=== PATIENT | female | born 1985 | race Caucasian/White ===

== ENCOUNTER 2017-06-22 14:10 | Outpatient (CLI) | payer BC ==
[2017-06-22] MEDS ORDERED: Gadobenate Dimeglumine 529 MG/1 ML (20ML VIAL) ONE (14:33)
--- NOTE | 2017-06-22 17:12 | MRI ---
MRI OF BRAIN WITH AND WITHOUT CONTRAST MRI INTERNAL AUDITORY CANALS WITH AND WITHOUT CONTRAST 06/22/17 CLINICAL HISTORY: Vestibular neuritis. FINDINGS: There is no ventriculomegaly, mass effect or midline shift or acute territorial infarction. There is no mass or pathologic enhancement of either CP angle cistern, or along the course of the 7th/8th cran ial nerves. IMPRESSION: There is no acute intracranial abnormality. No evidence of mass or pathologic enhancement of either CP angle cistern. POS: LALI
== END 2017-06-22 14:11 | disposition home or self-care (01) ==
LOC: MRI 14:10
PROVIDERS: ATTEND Otolaryngology Plastic Surgery within the Head & Neck
DX: H81.20 Vestibular neuronitis, unspecified ear (principal)
CPT/HCPCS: 70553; A9579

== ENCOUNTER 2017-12-17 12:46 | Outpatient (CLI) | payer BC ==
--- NOTE | 2017-12-17 14:46 | RAD ---
CERVICAL SPINE 4 VIEWS: Lateral views obtained with neutral, flexion, and extension positions. AP view was also obtained. INDICATION: Neck pain. Migraines. FINDINGS: The cervical vertebrae maintain normal height and alignment. Disk spaces are normally preserved. Po sterior elements are normally aligned. No abnormal listhesis seen with flexion or extension. IMPRESSION: Unremarkable cervical spine. POS: TPC
== END 2017-12-17 12:47 | disposition home or self-care (01) ==
LOC: SCSRAD 12:46
PROVIDERS: ATTEND Chiropractor
DX: M54.2 Cervicalgia (principal)
CPT/HCPCS: 72052

== ENCOUNTER 2018-06-12 15:00 | Outpatient (CLI) | payer BC ==
--- NOTE | 2018-06-12 17:20 | ULT ---
ULTRASOUND OBSTETRICAL COMPLETE: DATE: 06/12/18 HISTORY: 32-year-old female in second trimester of . Supervision of normal . Evaluate anatomy. FINDINGS: number: Fernandes. lie: Variable. Maternal cervix: 5.5 cm in length and closed. Placenta: Posterior. No placenta previa. Amniotic fluid volume: MARY 11.5 cm. heart rate: 149 bpm. The following anatomy is visualized, with no evidence of anomalies: Head, lateral ventricles, cerebellum, nose and lips, spine, upper limbs, lower limbs, four chamber he art, umbilical cord, cord insertion, stomach, kidneys, and bladder. biometry: Head circumference (HC): 17.4 cm 19w 6d Biparietal diameter (BPD): 4.6 cm 19w 5d Abdominal circumference (AC): 14.4 cm 19w 5d Femur length (FL): 3.0 cm 19w 2d Average ultrasound age (AUA): 19w 4d Estimated date of delivery (DOMINICK): 11/02/2018 Last menstrual period (LMP): 02/03/2018 Gestational age by LMP: 18w 3d Estimated weight (EFW): 299 g +/- 44 g (0 lb 11 oz +/- 2 oz) IMPRESSION: 1. Live second trimester intrauterine gestation. 2. Estimated gestational age of 19 weeks, 4 days. 3. Variable lie. 4. No anatomical abnormalities. jn [] POS: T[facility]
== END 2018-06-12 15:01 | disposition home or self-care (01) ==
LOC: SCSULT 15:00
PROVIDERS: ATTEND Family Medicine
DX: Z34.82 Encounter for supervision of other normal pregnancy, second trimester (principal); Z3A.19 19 weeks gestation of pregnancy
CPT/HCPCS: 76805

== ENCOUNTER 2018-11-04 05:34 | Inpatient (IN) | payer BC ==
[2018-11-04] MEDS ORDERED: Promethazine HCl 25 MG/ML VIAL IM PRN ×2 (05:41→08:23)
[2018-11-04] MEDS ORDERED: Ondansetron PF 4 MG/2 ML Vial IVP PRN ×3 (05:41→11:03)
[2018-11-04] MEDS ORDERED: hydrALAZINE 20 MG/ML VIAL SLOW IVP PRN ×2 (05:41→11:03)
[2018-11-04] MEDS ORDERED: CEFAZOLIN 2 GM in Premix Bag 1 BAG IVPB SCH (06:00)
[2018-11-04] MEDS ORDERED: Bicitra 30 ML UDCUP PO SCH (06:00)
[2018-11-04] MEDS ORDERED: Azithromycin 500 MG in Sodium Chloride 0.9% 250 ML 250 ML IVPB SCH (06:00)
[2018-11-04 06:07] VITALS: BMI 30.5
[2018-11-04 06:16] LABS: Hemoglobin 13.2 g/dL (12.0-16.0); Mean Corpuscular HGB CONC 35.7 g/dL (32.0-36.0); Mean Corpuscular Hemoglobin 30.3 pg (27.0-31.0); Mean Platelet Volume 8.3 fL (7.4-10.4); Platelet Count 212 thou/uL (130-400); RBC Distribution Width 13.4 % (11.5-14.5); Red Blood Cell (RBC) Count 4.37 mill/uL (4.20-5.40); White Blood Cell (WBC) Count 9.8 thou/uL (4.8-10.8)
[2018-11-04] MEDS ORDERED: Oxytocin 10 UNITS/ML VIAL ONE (06:44)
[2018-11-04] MEDS ORDERED: ePHEDrine/0.9% NaCl/PF SYRINGE 50 mg/10 ml ONE (06:44)
[2018-11-04] MEDS ORDERED: Ondansetron PF 4 MG/2 ML Vial ONE ×2 (06:44→15:26)
[2018-11-04] MEDS ORDERED: MORPHINE 5 MG/10 ML PF VIAL ONE (06:44)
[2018-11-04 06:57] LABS: Syphilis Antibody Nonreactive (Nonreactive); Syphilis Antibody Index 0.04 S/CO (<1.00 Non-Reactive)
[2018-11-04 06:58] LABS: HBSAg Index 0.32 S/CO (0-0.99); Hep B Surf Ag Non-Reactive S/CO (NonReactive)
[2018-11-04] MEDS ORDERED: Phenylephrine HCL 10 MG/ML VIAL ONE (07:28)
[2018-11-04] MEDS ORDERED: diphenhydrAMINE 50 MG/ML VIAL IVP PRN (08:23)
[2018-11-04] MEDS ORDERED: Naloxone HCl 0.4 mg/ml Vial IV PRN (08:23)
[2018-11-04] MEDS ORDERED: Naloxone HCl 0.4 mg/ml Vial IVP PRN ×2 (08:23)
[2018-11-04] MEDS ORDERED: Promethazine HCl 25 MG SUPP PR PRN (08:23)
[2018-11-04] MEDS ORDERED: Communication Order-Pharmacy FS SCH (08:30)
[2018-11-04] MEDS ORDERED: NS / Oxytocin 40 units/1000ml 1,000 ML ONE (09:41)
[2018-11-04] MEDS ORDERED: Ketorolac Tromethamine 30 MG/ML VIAL ONE (10:00)
[2018-11-04] MEDS: Ketorolac Tromethamine 30 MG/ML VIAL IVP PRN ×2 (10:01→23:13)
[2018-11-04] MEDS ORDERED: Bisacodyl 10 MG SUPP PR PRN (11:03)
[2018-11-04] MEDS ORDERED: Lanolin Ointment 7 GM TUBE TOP PRN (11:03)
[2018-11-04] MEDS ORDERED: traMADol HCl 50 MG TAB PO PRN (11:03)
[2018-11-04] MEDS ORDERED: diphenhydrAMINE 25 MG CAP PO PRN (11:03)
[2018-11-04] MEDS ORDERED: Acetaminophen 325 MG TAB PO PRN (11:03)
[2018-11-04] MEDS ORDERED: Simethicone Chewable 80 MG TAB PO PRN (11:03)
--- NOTE | 2018-11-04 15:03 | OP ---
DATE OF PROCEDURE: 11/04/2018 PREOPERATIVE DIAGNOSIS: Term intrauterine with previous section x3 with history of habitual , high-risk . POSTOPERATIVE DIAGNOSIS: Term intrauterine with previous section x3 with history of habitual , high-risk , status post delivery. PROCEDURE PERFORMED: Repeat low-transverse section. ASSISTANTS: Dr. Dennys Bush and Lynn Pierce, -3. ANESTHESIA: Spinal anesthetic. COMPLICATIONS: No complications. DESCRIPTION OF PROCEDURE: After adequate spinal anesthetic, the patient was placed in the supine position. A Lance catheter was placed. Her abdomen was prepped and draped in the usual sterile technique. A Pfannenstiel incision was made to the old scar. Skin opened without difficulty. Subcutaneous tissue opened with sharp dissection. Peritoneum opened with sharp dissection as well as cautery. Noted that the abdomen was still with a gravid uterus. Bladder flap was incised inferiorly and then Paresh O was placed without difficulty. A low transverse incision was made on the uterus. Membranes were ruptured. Clear fluid was encountered and a viable male was delivered from vertex presentation with the use of vacuum assist, approximately 10 seconds, with no complications. Infant breathed and cried spontaneously. After approximately 30 seconds, the cord was clamped and cut. Noted that the had been dried, and nose and mouth suctioned. Infant was handed to the care of the Neonatology Team. Cord blood was obtained and placenta was delivered manually, appeared intact. Ring forceps were placed over the hysterotomy edges and the hysterotomy was then closed in continuous fashion using 0 Monocryl suture. Noted that the cervix had been dilated as well as the uterus wipe-cleaned with a lap. One additional [id number] was placed in the uterine incision for hemostasis. Inspection of the gutters revealed no bleeding, no clots. The peritoneum was then closed in continuous fashion using 2-0 plain suture and the fascia was closed in continuous fashion using 0 Vicryl. Sponge and instrument counts were correct x2. Few bleeders were cauterized on the subcutaneous tissue and the skin was then closed using 4-0 Vicryl in subcuticular fashion. The patient tolerated the procedure well, did go to recovery room in good condition. Noted that the baby is a viable male , weight 8 pounds and 5 ounces, Apgars 9 at 1 minute and 9 at 5 minutes, and level 1 nursery. Noted that there was some moderate scarring, but no additional complications. Job ID: [id number]
[2018-11-04] MEDS ORDERED: ePHEDrine 50 MG/ML VIAL ONE (15:26)
[2018-11-04] MEDS ORDERED: PHENYLEPHRINE-NS 100 MCG/ML 10 ML SYRINGE ONE (15:26)
[2018-11-04] MEDS: Ibuprofen 800 MG TAB PO SCH ×2 (16:05→22:25)
[2018-11-04] MEDS: Lactated Ringer's 1,000 ML IV SCH ×2 (16:59→18:31)
[2018-11-04] MEDS: Docusate Calcium (SURFAK) 240 MG CAP PO SCH (22:25)
[2018-11-05] MEDS: Lactated Ringer's 1,000 ML IV SCH ×2 (04:48→13:29)
[2018-11-05 05:24] LABS: Hemoglobin 11.4 g/dL (12.0-16.0); Mean Corpuscular HGB CONC 33.3 g/dL (32.0-36.0); Mean Corpuscular Hemoglobin 28.9 pg (27.0-31.0); Mean Corpuscular Volume 86.7 fL (78.0-98.0); Mean Platelet Volume 7.4 fL (7.4-10.4); Platelet Count 167 thou/uL (130-400); RBC Distribution Width 12.7 % (11.5-14.5); Red Blood Cell (RBC) Count 3.93 mill/uL (4.20-5.40); White Blood Cell (WBC) Count 11.5 thou/uL (4.8-10.8)
[2018-11-05] MEDS: Ibuprofen 800 MG TAB PO SCH ×3 (05:58→21:35)
--- NOTE | 2018-11-05 06:43 | PDOC.OBPPN ---
FMR OB PN: Subj - Interval History Hospital Day: 2 Day: Mrs. Yoon is a 32 year old female who is day 1 S/P repeat c section x4. She reports that the night was uneventful and has been able to rest with pain well controlled on ibuprofen and toradol. She has had minimal vaginal bleeding. She has been able to urinate without issues after her Lance was removed and has had normal bowel movements. She denies nausea and vomiting. She reports this morning that she had some pain in her right hand/arm overnight that woke her up several times. She states that this pain is ongoing, tingling in quality, and not controlled by pain medication. She states that is going well and baby has been able to latch well several times, but has been sleepy during the last few feeds. FMR OB PN: Obj - Maternal Vital signs: BP: 120/77 HR: 92 RR: 18 Tmax: 98.1 F Pox: 98% on room air - Urine output I&O: 11/03/18 11/04/18 11/05/18 06:59 06:59 06:59 Intake Total 3950 Output Total 3650 Balance 300 - Pain Management Pain scale: 0 (no pain reported at this time) Intervention: oral medication (ibuprofen) FMR OB PN: Exam - Physical Exam General: NAD, awake, alert and oriented Heart: RRR, normal S1/S2, no murmurs/rubs/gallops General: CTAB Abdomen: soft, non-tender, bowel sound present (NABS) Neurological: no focal deficit : bandage intact, incision healing well, no erythema Psychiatric: normal mood and affect FMR OB PN: Data - Labs Lab results: Laboratory Results - last 24 hr 11/04/18 11/04/18 11/04/18 05:54 05:54 05:54 WBC RBC Hgb Hct MCV MCH MCHC RDW Plt Count MPV Syphilis IgG/IgM Ab Nonreactive Hep Bs Antigen Non-Reactive Blood Type A POSITIVE Antibody Screen NEGATIVE Crossmatch See Detail 11/05/18 05:11 WBC 11.5 H RBC 3.93 L Hgb 11.4 L Hct 34.1 L MCV 86.7 MCH 28.9 MCHC 33.3 RDW 12.7 Plt Count 167 MPV 7.4 Syphilis IgG/IgM Ab Hep Bs Antigen Blood Type Antibody Screen Crossmatch FMR OB PN: A/P Disposition: Mrs. Yoon is recovering well from her c section. AM Hgb and Hct were stable, but will continue to monitor her for post operative complications. Continue advancing diet as tolerated by patient. Continue PO ibuprofen and IV toradol prn for pain. Will d/c IVF this morning if vitals remain stable. Patient to ambulate today as tolerated. Will keep SCDs for DVT prophylaxis. Signature: Lynn Haney, MS3
[2018-11-05] MEDS: Prenatal Vitamin 1 TAB PO SCH (08:50)
[2018-11-05] MEDS: Docusate Calcium (SURFAK) 240 MG CAP PO SCH ×2 (08:51→21:35)
[2018-11-06] MEDS: Lactated Ringer's 1,000 ML IV SCH (04:44)
[2018-11-06] MEDS: Ibuprofen 800 MG TAB PO SCH (05:29)
[2018-11-06 08:25] VITALS: BP 110/67; TEMP 97.9
[2018-11-06] MEDS: Docusate Calcium (SURFAK) 240 MG CAP PO SCH (09:08)
[2018-11-06] MEDS: Prenatal Vitamin 1 TAB PO SCH (09:08)
== END 2018-11-06 10:35 | disposition home or self-care (01) | DRG 788 ==
LOC: L&D 05:34 → 3SW 10:56
PROVIDERS: ADMIT Family Medicine; ATTEND Family Medicine
PROC: 10D00Z1 Extraction of Products of Conception, Low, Open Approach (ICD-10-PCS; principal; 2018-11-04)
DX: O34.211 Maternal care for low transverse scar from previous cesarean delivery (principal); Z3A.38 38 weeks gestation of pregnancy; Z37.0 Single live birth; Z88.5 Allergy status to narcotic agent; Z91.013 Allergy to seafood
CPT/HCPCS: 36415; 51702; 85027; 86780; 86850; 86900; 86901; 86922; 87340; J0690; J1885; J2274; J2370; J2405; J2590; J3490